=== PATIENT | female | born 1950 | race Caucasian/White ===

== ENCOUNTER 2019-11-11 14:47 | Emergency (ER) | payer OTHER ==
[2019-11-11 15:07] VITALS: BP 145/82; PULSE 94; TEMP 98.5; BMI 43.5
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
[2019-11-11] MEDS ORDERED: KETOROLAC TROMETHAMINE 30 MG/1 ML VIAL IM ONE (16:28)
[2019-11-11] MEDS ORDERED: KETOROLAC TROMETHAMINE 30 MG/1 ML VIAL ONE (16:30)
== END 2019-11-11 16:42 | disposition home or self-care (01) ==
LOC: SUPCPDRO 14:47 → JERFT 14:47
PROC: 3E0233Z Introduction of Anti-inflammatory into Muscle, Percutaneous Approach (ICD-10-PCS; principal; 2019-11-11)
DX: S99.822A Other specified injuries of left foot, initial encounter (principal); V03.10XA Pedestrian on foot injured in collision with car, pick-up truck or van in traffic accident, initial encounter; Y92.414 Local residential or business street as the place of occurrence of the external cause; Y93.89 Activity, other specified; Y99.8 Other external cause status; I10 Essential (primary) hypertension; K21.9 Gastro-esophageal reflux disease without esophagitis; J45.909 Unspecified asthma, uncomplicated; D64.9 Anemia, unspecified; Z96.653 Presence of artificial knee joint, bilateral; Z87.440 Personal history of urinary (tract) infections
CPT/HCPCS: 73630-TC-LT; 99281-25

== ENCOUNTER 2024-01-17 11:57 | Inpatient (IN) | payer OTHER ==
[2024-01-17 13:04] LABS: BASO % 0.4 % (0-2.0); EOS % 0.6 % (0-4.5); HEMATOCRIT 38.2 % (32.4-45.2); HEMOGLOBIN 12.6 GM/dL (10.7-15.3); INR 1.14 (0.83-1.09); LYMPH % 11.5 % (8-40); MCH 26.9 pg (25.7-33.7); MCHC 32.9 g/dl (32.0-36.0); MEAN CELL VOLUME 81.9 fl (80-96); MONO % 5.7 % (3.8-10.2); NEUT % 81.8 % (42.8-82.8); PLATELET COUNT 130 10^3/uL (134-434); PROTHROMBIN TIME (PATIENT) 13.2 SEC (9.7-13.0); RBC 4.66 M/mm3 (3.60-5.2); RDW 15.1 % (11.6-15.6); WHITE BLOOD COUNT 9.2 K/mm3 (4.0-10.0)
[2024-01-17 13:06] LABS: ACTIVATED PTT 31.2 SECONDS (25.2-36.5)
[2024-01-17 13:21] LABS: CHLORIDE 107 mmol/L (98-107); POTASSIUM 4.3 mmol/L (3.5-5.1); SODIUM 139 mmol/L (136-145)
[2024-01-17 13:24] LABS: ALBUMIN 3.2 g/dl (3.4-5.0); ANION GAP 3 mmol/L (4-13); CALCIUM 9.6 mg/dL (8.5-10.1); CO2 29 mmol/L (21-32)
[2024-01-17 13:26] LABS: BLOOD UREA NITROGEN 14.7 mg/dL (7-18); GLUCOSE,RANDOM 100 mg/dL (74-106)
[2024-01-17 13:28] LABS: CREATININE 1.2 mg/dL (0.55-1.3); SGOT/AST 14 U/L (15-37); SGPT/ALT 11 U/L (13-61)
[2024-01-17 13:29] LABS: CHOLESTEROL 170 mg/dL (50-200); TOT PROT 6.4 g/dl (6.4-8.2)
[2024-01-17 13:30] LABS: LDL CHOLESTEROL (ONLY SJRH) 87 mg/dL (5-100)
[2024-01-17 13:31] LABS: BILIRUBIN,TOTAL 0.7 mg/dL (0.2-1)
[2024-01-17 13:32] LABS: ALK PHOS 108 U/L (45-117); HDL CHOLESTEROL 75 mg/dL (40-60)
[2024-01-17] MEDS: SODIUM CHLORIDE 1,000 ML IV SCH (13:50)
[2024-01-17] MEDS ORDERED: ASPIRIN 81 MG CHEWABLE TABLETS ONE (13:57)
[2024-01-17] MEDS: ASPIRIN 81 MG CHEWABLE TABLETS PO ONE (14:13)
[2024-01-17 23:54] VITALS: BMI 34.6
[2024-01-18] MEDS: ACETAMINOPHEN 1000 MG/100 ML BAG IVPB PRN (06:41)
[2024-01-18 07:09] LABS: BASO % 0.4 % (0-2.0); EOS % 0.6 % (0-4.5); HEMATOCRIT 35.3 % (32.4-45.2); HEMOGLOBIN 11.4 GM/dL (10.7-15.3); LYMPH % 12.5 % (8-40); MCH 26.5 pg (25.7-33.7); MCHC 32.2 g/dl (32.0-36.0); MEAN CELL VOLUME 82.5 fl (80-96); MEAN PLT VOLUME 9.9 fl (7.5-11.1); MONO % 8.5 % (3.8-10.2); PLATELET COUNT 115 10^3/uL (134-434); RBC 4.28 M/mm3 (3.60-5.2); RDW 14.7 % (11.6-15.6); WHITE BLOOD COUNT 9.3 K/mm3 (4.0-10.0)
[2024-01-18 07:32] LABS: POTASSIUM 4.2 mmol/L (3.5-5.1)
[2024-01-18 07:37] LABS: CALCIUM 9.6 mg/dL (8.5-10.1)
[2024-01-18 07:38] LABS: MAGNESIUM 1.9 mg/dL (1.8-2.4)
[2024-01-18 07:41] LABS: PHOSPHOROUS 2.6 mg/dL (2.5-4.9)
[2024-01-18] MEDS ORDERED: ALBUTEROL SO4 HFA INHALER IH PRN (07:57)
[2024-01-18] MEDS: BUSPIRONE HCL 10 MG, BUSPIRONE HCL 5 MG PO SCH (10:13)
[2024-01-18] MEDS: PANTOPRAZOLE 40 MG TABLET PO SCH (10:14)
[2024-01-18] MEDS: DULoxetine HCL 30 MG CAPSULE.DR PO SCH (10:14)
[2024-01-18] MEDS: LOSARTAN POTASSIUM 50 MG TABLET PO SCH (10:15)
[2024-01-18] MEDS: GABAPENTIN 300 MG CAPSULE PO SCH (13:55)
[2024-01-18] MEDS: ASPIRIN COATED 81 MG TABLET.EC PO SCH (15:55)
[2024-01-18] MEDS: clonazePAM 0.25 MG ODT TABLETS SL SCH (21:11)
[2024-01-18] MEDS: ATORVASTATIN CA 20 MG TABLET (FP) PO SCH (21:59)
[2024-01-18] MEDS ORDERED: ATORVASTATIN CA 80 MG TABLET (FP) PO SCH (22:00)
[2024-01-19 08:42] LABS: BASO % 0.3 % (0-2.0); EOS % 0.9 % (0-4.5); HEMATOCRIT 34.8 % (32.4-45.2); HEMOGLOBIN 11.6 GM/dL (10.7-15.3); LYMPH % 16.9 % (8-40); MCH 27.4 pg (25.7-33.7); MCHC 33.3 g/dl (32.0-36.0); MEAN CELL VOLUME 82.2 fl (80-96); MEAN PLT VOLUME 9.7 fl (7.5-11.1); MONO % 10.8 % (3.8-10.2); NEUT % 71.1 % (42.8-82.8); PLATELET COUNT 113 10^3/uL (134-434); RBC 4.23 M/mm3 (3.60-5.2); WHITE BLOOD COUNT 8.6 K/mm3 (4.0-10.0)
[2024-01-19 08:51] LABS: POTASSIUM 3.9 mmol/L (3.5-5.1)
[2024-01-19 09:00] LABS: CALCIUM 9.6 mg/dL (8.5-10.1)
[2024-01-19 09:01] LABS: ALBUMIN 3.1 g/dl (3.4-5.0); BLOOD UREA NITROGEN 18.8 mg/dL (7-18)
[2024-01-19 09:04] LABS: CREATININE 1.1 mg/dL (0.55-1.3)
[2024-01-19 09:06] LABS: TOT PROT 5.9 g/dl (6.4-8.2)
[2024-01-19 09:08] LABS: BILIRUBIN,TOTAL 1.1 mg/dL (0.2-1)
[2024-01-20] MEDS: LOSARTAN POTASSIUM 50 MG TABLET PO SCH (09:24)
[2024-01-22] MEDS: DOCUSATE SODIUM 100 MG CAPSULE (FP) PO PRN (22:14)
[2024-01-26] MEDS ORDERED: DOCUSATE SODIUM 100 MG CAPSULE (FP) PO PRN (10:30)
[2024-01-26] MEDS ORDERED: ALBUTEROL SO4 HFA INHALER IH PRN (10:30)
[2024-01-26] MEDS: DULoxetine HCL 30 MG CAPSULE.DR PO SCH (11:25)
[2024-01-26] MEDS: BUSPIRONE HCL 10 MG, BUSPIRONE HCL 5 MG PO SCH (11:26)
[2024-01-26] MEDS: ASPIRIN COATED 81 MG TABLET.EC PO SCH (11:26)
[2024-01-26] MEDS: LOSARTAN POTASSIUM 50 MG TABLET PO SCH (11:27)
[2024-01-26] MEDS: PANTOPRAZOLE 40 MG TABLET PO SCH (11:27)
[2024-01-26] MEDS: GABAPENTIN 300 MG CAPSULE PO SCH (14:12)
[2024-01-26] MEDS ORDERED: BUSPIRONE HCL 10 MG, BUSPIRONE HCL 5 MG PO SCH ×2 (22:00)
[2024-01-26] MEDS: ATORVASTATIN CA 20 MG TABLET (FP) PO SCH (22:43)
[2024-01-27] MEDS ORDERED: DULoxetine HCL 30 MG CAPSULE.DR PO SCH (10:00)
[2024-01-27] MEDS ORDERED: ASPIRIN COATED 81 MG TABLET.EC PO SCH (10:00)
[2024-01-27] MEDS ORDERED: LOSARTAN POTASSIUM 50 MG TABLET PO SCH (10:00)
[2024-01-27] MEDS ORDERED: PANTOPRAZOLE 40 MG TABLET PO SCH (10:00)
[2024-01-29 18:06] VITALS: RESP 18
[2024-01-30] MEDS: MINERAL OIL/PET HY-PHL TOPICAL OINTMENT 454 GM JAR TP SCH (12:20)
[2024-01-31 07:21] VITALS: TEMP 98.2
[2024-01-31 09:43] LABS: BASO % 0.3 % (0-2.0); EOS % 2.1 % (0-4.5); HEMATOCRIT 32.3 % (32.4-45.2); HEMOGLOBIN 10.1 GM/dL (10.7-15.3); LYMPH % 19.2 % (8-40); MCH 26.5 pg (25.7-33.7); MCHC 31.3 g/dl (32.0-36.0); MEAN CELL VOLUME 84.9 fl (80-96); MEAN PLT VOLUME 9.4 fl (7.5-11.1); MONO % 7.6 % (3.8-10.2); NEUT % 70.8 % (42.8-82.8); PLATELET COUNT 172 10^3/uL (134-434); RDW 15.1 % (11.6-15.6); WHITE BLOOD COUNT 7.6 K/mm3 (4.0-10.0)
[2024-01-31 09:56] LABS: POTASSIUM 4.8 mmol/L (3.5-5.1)
[2024-01-31 09:58] LABS: ALBUMIN 2.8 g/dl (3.4-5.0); BLOOD UREA NITROGEN 34.7 mg/dL (7-18); CALCIUM 9.7 mg/dL (8.5-10.1)
[2024-01-31 10:01] LABS: CREATININE 1.4 mg/dL (0.55-1.3)
[2024-01-31 10:03] LABS: BILIRUBIN,TOTAL 0.6 mg/dL (0.2-1); TOT PROT 5.8 g/dl (6.4-8.2)
[2024-01-31 14:39] VITALS: BP 103/53; PULSE 68
== END 2024-01-31 19:12 | DRG 65 ==
LOC: JER 11:57 → JERBED 15:36 → J4W 22:43 → J7W 01-25 16:47
PROVIDERS: ADMIT Internal Medicine; ATTEND Internal Medicine
DX: I63.89 Other cerebral infarction (principal); I24.89 Other forms of acute ischemic heart disease; I69.354 Hemiplegia and hemiparesis following cerebral infarction affecting left non-dominant side; I10 Essential (primary) hypertension; K21.9 Gastro-esophageal reflux disease without esophagitis; D64.9 Anemia, unspecified; J45.909 Unspecified asthma, uncomplicated; R47.1 Dysarthria and anarthria; M25.571 Pain in right ankle and joints of right foot; G62.9 Polyneuropathy, unspecified; L97.529 Non-pressure chronic ulcer of other part of left foot with unspecified severity; F41.8 Other specified anxiety disorders; E78.5 Hyperlipidemia, unspecified; B02.9 Zoster without complications
CPT/HCPCS: 36415; 70450-TC; 70496-TC; 70498-TC; 70551-TC; 71045-TC-FY; 72125-TC; 72170-TC-FY; 73610-TC-RT-FY; 73630-TC-RT-FY; 80048; 80053; 80061; 82550; 82962; 83036; 83735; 84100; 84484; 85025; 85610; 85730; 86850; 86900; 86901; 87635; 93005; 93010; 93306-TC; 97116-GP; 97162-GP; 99285-25; J0131; Q9967

== ENCOUNTER 2025-01-31 16:57 | Observation (INO) | payer OTHER ==
[2025-01-31] MEDS ORDERED: ACETAMINOPHEN INJECTION 100 ML ONE (17:32)
[2025-01-31 18:12] VITALS: BMI 34.7
[2025-01-31] MEDS: ACETAMINOPHEN 1000 MG/100 ML BAG IVPB ONE (18:30)
[2025-01-31 18:50] LABS: ABSOLUTE IMMATURE GRANULOCYTES 0.05 x10^3/uL (0.0-0.031); BASOPHILS # 0.03 x10^3/uL (0.01-0.08); EOSINOPHIL % 0.9 % (0.7-5.8); EOSINOPHILS # 0.09 x10^3/uL (0.04-0.36); HEMATOCRIT 41.7 % (34.1-44.9); MCHC 31.2 g/dl (32.2-35.5); MEAN CELL VOLUME 91.9 fl (79.4-94.8); MONOCYTE # 0.78 x10^3/uL (0.24-0.86); MONOCYTE % 7.7 % (4.7-12.5); PLATELET COUNT 119 x10^3/uL (182-369); RDW 13.3 % (12.4-16.6)
[2025-01-31 18:59] LABS: INR 1.17 (0.83-1.09); PROTHROMBIN TIME (PATIENT) 12.7 SEC (9.7-13.0)
[2025-01-31 19:02] LABS: ACTIVATED PTT 37.1 SECONDS (25.2-36.5)
[2025-01-31 19:30] LABS: POTASSIUM 4.3 mmol/L (3.5-5.1)
[2025-01-31 19:32] LABS: CALCIUM 10.4 mg/dL (8.5-10.1)
[2025-01-31 19:33] LABS: ALBUMIN 3.8 g/dl (3.4-5.0)
[2025-01-31 19:33] LABS: CALCIUM 9.9 mg/dL (8.5-10.1)
[2025-01-31 19:34] LABS: ALBUMIN 3.5 g/dl (3.4-5.0); BLOOD UREA NITROGEN 19.1 mg/dL (7-18)
[2025-01-31 19:36] LABS: CREATININE 1.5 mg/dL (0.55-1.3)
[2025-01-31 19:37] LABS: CREATININE 1.4 mg/dL (0.55-1.3)
[2025-01-31 19:37] LABS: BILIRUBIN,TOTAL 0.5 mg/dL (0.2-1); TOT PROT 6.8 g/dl (6.4-8.2)
[2025-01-31 19:39] LABS: BILIRUBIN,TOTAL 0.7 mg/dL (0.2-1); TOT PROT 6.5 g/dl (6.4-8.2)
[2025-01-31] MEDS ORDERED: MORPHINE SULFATE 2 MG/ML SYRINGE ONE ×2 (19:48→19:51)
[2025-01-31] MEDS: morphine SULFATE 4 MG/ML VIAL IVPUSH ONE (20:01)
[2025-01-31] MEDS ORDERED: ACETAMINOPHEN 1000 MG/100 ML BAG IVPB PRN (21:07)
[2025-01-31] MEDS: SODIUM CHLORIDE 1,000 ML IV SCH (22:12)
[2025-01-31] MEDS: INSULIN ASPART SLIDING SCALE (NOVOLOG) 1 VIAL SQ SCH (22:13)
[2025-01-31] MEDS ORDERED: ALBUTEROL SO4 HFA INHALER IH PRN (23:30)
[2025-02-01] MEDS: LIDOCAINE PATCH REMOVAL MC SCH (00:17)
[2025-02-01] MEDS ORDERED: DOCUSATE SODIUM 100 MG CAPSULE (FP) PO PRN (05:36)
[2025-02-01] MEDS ORDERED: MAGNESIUM HYDROX 2400MG/30ML ORAL SUSPENSION 30 ML CUP PO PRN (05:36)
[2025-02-01] MEDS: GABAPENTIN 400 MG, GABAPENTIN 100 MG PO SCH (05:38)
[2025-02-01] MEDS ORDERED: GABAPENTIN 400 MG CAPSULE PO SCH (06:00)
[2025-02-01] MEDS ORDERED: GABAPENTIN 100 MG CAPSULE PO SCH (06:00)
[2025-02-01 08:09] LABS: ABSOLUTE IMMATURE GRANULOCYTES 0.09 x10^3/uL (0.0-0.031); BASOPHILS # 0.02 x10^3/uL (0.01-0.08); EOSINOPHIL % 1.6 % (0.7-5.8); EOSINOPHILS # 0.11 x10^3/uL (0.04-0.36); HEMATOCRIT 38.8 % (34.1-44.9); HEMOGLOBIN 12.1 g/dL (11.2-15.7); MCHC 31.2 g/dl (32.2-35.5); MEAN CELL VOLUME 91.5 fl (79.4-94.8); MEAN PLT VOLUME 11.9 fl (9.4-12.3); MONOCYTE # 0.52 x10^3/uL (0.24-0.86); MONOCYTE % 7.6 % (4.7-12.5); PLATELET COUNT 90 x10^3/uL (182-369); RDW 13.2 % (12.4-16.6)
[2025-02-01 08:14] LABS: POTASSIUM 4.2 mmol/L (3.5-5.1)
[2025-02-01 08:25] LABS: BLOOD UREA NITROGEN 18.1 mg/dL (7-18); CALCIUM 9.5 mg/dL (8.5-10.1)
[2025-02-01 08:26] LABS: ALBUMIN 3.3 g/dl (3.4-5.0); MAGNESIUM 1.9 mg/dL (1.8-2.4)
[2025-02-01 08:29] LABS: CREATININE 1.2 mg/dL (0.55-1.3)
[2025-02-01 08:30] LABS: BILIRUBIN,TOTAL 0.7 mg/dL (0.2-1)
[2025-02-01] MEDS: SODIUM CHLORIDE 1,000 ML IV SCH (08:40)
[2025-02-01] MEDS ORDERED: LIDOCAINE 5% TOPICAL PATCH TP SCH (10:00)
[2025-02-01] MEDS ORDERED: DULoxetine HCL 30 MG CAPSULE.DR PO ONE (10:34)
[2025-02-01] MEDS: LIDOCAINE 5% TOPICAL PATCH TP SCH (10:39)
[2025-02-01] MEDS: amLODIPine BESYLATE 5 MG TABLET (FP) PO SCH (10:40)
[2025-02-01] MEDS: BUSPIRONE HCL 10 MG, BUSPIRONE HCL 5 MG PO SCH (10:40)
[2025-02-01] MEDS: DULoxetine HCL 60 MG CAPSULE.DR PO SCH (10:41)
[2025-02-01] MEDS: FAMOTIDINE 40 MG TABLET PO SCH (12:06)
[2025-02-01 14:54] VITALS: RESP 18
[2025-02-01] MEDS: HYDROmorphone HCL CARPU-JECT 2 MG/1 ML DISP.SYRIN IVPB PRN (15:11)
[2025-02-01] MEDS: ATORVASTATIN CA 80 MG TABLET (FP) PO SCH (21:22)
[2025-02-02 07:24] LABS: ABSOLUTE IMMATURE GRANULOCYTES 0.03 x10^3/uL (0.0-0.031); BASOPHILS # 0.02 x10^3/uL (0.01-0.08); EOSINOPHIL % 1.8 % (0.7-5.8); EOSINOPHILS # 0.13 x10^3/uL (0.04-0.36); HEMATOCRIT 36.8 % (34.1-44.9); HEMOGLOBIN 11.3 g/dL (11.2-15.7); MCHC 30.7 g/dl (32.2-35.5); MEAN CELL VOLUME 91.1 fl (79.4-94.8); MEAN PLT VOLUME 12.3 fl (9.4-12.3); MONOCYTE # 0.62 x10^3/uL (0.24-0.86); MONOCYTE % 8.6 % (4.7-12.5); PLATELET COUNT 99 x10^3/uL (182-369); RDW 13.2 % (12.4-16.6)
[2025-02-02 07:51] LABS: CALCIUM 9.3 mg/dL (8.5-10.1)
[2025-02-02 07:52] LABS: BLOOD UREA NITROGEN 11.8 mg/dL (7-18); MAGNESIUM 1.8 mg/dL (1.8-2.4)
[2025-02-02 07:54] LABS: BILIRUBIN,TOTAL 0.6 mg/dL (0.2-1)
[2025-02-02 07:55] LABS: CREATININE 0.9 mg/dL (0.55-1.3); TOT PROT 5.6 g/dl (6.4-8.2)
[2025-02-02] MEDS: DULoxetine HCL 30 MG CAPSULE.DR PO SCH (09:10)
[2025-02-02 12:21] VITALS: BP 121/90; PULSE 67; TEMP 98.4
== END 2025-02-02 12:55 ==
LOC: JER 16:57 → JERBED 20:21 → J7W 22:55
PROVIDERS: ADMIT Internal Medicine
PROC: 3E033NZ Introduction of Analgesics, Hypnotics, Sedatives into Peripheral Vein, Percutaneous Approach (ICD-10-PCS; principal; 2025-01-31)
PROC: 3E0337Z Introduction of Electrolytic and Water Balance Substance into Peripheral Vein, Percutaneous Approach (ICD-10-PCS; 2025-01-31)
DX: S80.12XA Contusion of left lower leg, initial encounter (principal); W18.39XA Other fall on same level, initial encounter; Y04.2XXA Assault by strike against or bumped into by another person, initial encounter; Y92.091 Bathroom in other non-institutional residence as the place of occurrence of the external cause; M79.89 Other specified soft tissue disorders; E11.9 Type 2 diabetes mellitus without complications; I10 Essential (primary) hypertension; F32.A Depression, unspecified; E78.5 Hyperlipidemia, unspecified; Z86.73 Personal history of transient ischemic attack (TIA), and cerebral infarction without residual deficits; J44.9 Chronic obstructive pulmonary disease, unspecified; K21.9 Gastro-esophageal reflux disease without esophagitis
CPT/HCPCS: 36415; 70450-TC; 72125-TC; 72128-TC; 73590-TC-LT-FY; 80053; 82962; 83036; 83735; 84100; 85025; 85610; 85730; 86850; 86900; 86901; 93005; 93010; 96361; 96374; 96375; 99285-25; G0378; J0131

== ENCOUNTER 2025-02-04 22:21 | Observation (INO) | payer OTHER ==
[2025-02-05 01:06] LABS: ABSOLUTE IMMATURE GRANULOCYTES 0.05 x10^3/uL (0.0-0.031); BASOPHILS # 0.02 x10^3/uL (0.01-0.08); EOSINOPHIL % 0.7 % (0.7-5.8); EOSINOPHILS # 0.08 x10^3/uL (0.04-0.36); HEMATOCRIT 40.5 % (34.1-44.9); HEMOGLOBIN 12.9 g/dL (11.2-15.7); MCHC 31.9 g/dl (32.2-35.5); MEAN CELL VOLUME 88.8 fl (79.4-94.8); MEAN PLT VOLUME 11.6 fl (9.4-12.3); MONOCYTE # 1.29 x10^3/uL (0.24-0.86); PLATELET COUNT 188 x10^3/uL (182-369); RDW 13.2 % (12.4-16.6)
[2025-02-05 01:56] LABS: BLOOD UREA NITROGEN 28.6 mg/dL (7-18); CALCIUM 10.6 mg/dL (8.5-10.1)
[2025-02-05 02:00] LABS: CREATININE 1.4 mg/dL (0.55-1.3)
[2025-02-05 02:01] LABS: BILIRUBIN,TOTAL 1.2 mg/dL (0.2-1); TOT PROT 7.3 g/dl (6.4-8.2)
[2025-02-05 02:07] LABS: ALBUMIN 3.9 g/dl (3.4-5.0)
[2025-02-05] MEDS: SODIUM CHLORIDE 0.9% 500 ML INFUS.BAG IV ONE (04:29)
[2025-02-05 05:16] LABS: EPI CELLS 32 /uL (0-25.1); HYALINE CASTS 6 /uL (0-3.1); PH,URINE 5.5 (5.0-8.0); URINE APPEARANCE CLEAR; URINE BACTERIA 9 /uL (0-1359); URINE BILIRUBIN NEGATIVE (NEGATIVE); URINE COLOR YELLOW; URINE GLUCOSE (UA) NEGATIVE (NEGATIVE); URINE KETONE NEGATIVE (NEGATIVE); URINE LEUK ESTERASE NEGATIVE (NEGATIVE); URINE NITRITE NEGATIVE (NEGATIVE); URINE PROTEIN 2+ (NEGATIVE); URINE WBC 41 /uL (0-25.8)
[2025-02-05] MEDS ORDERED: MORPHINE SULFATE 2 MG/ML SYRINGE IVPUSH PRN (05:25)
[2025-02-05] MEDS ORDERED: NITROGLYCERIN SUBLINGUAL 1/150 0.4 MG TAB SL PRN (05:28)
[2025-02-05] MEDS ORDERED: ALBUTEROL SO4 0.083% IH SOL 2.5 MG/3 ML VIAL.NEB. NEB PRN (05:31)
[2025-02-05 06:47] LABS: N-TERMINAL BNP 532.3 pg/ml (5-450)
[2025-02-05] MEDS ORDERED: INSULIN ASPART SLIDING SCALE (NOVOLOG) 1 VIAL SQ SCH (07:00)
[2025-02-05] MEDS ORDERED: DOCUSATE SODIUM 100 MG CAPSULE (FP) PO PRN (07:28)
[2025-02-05 07:50] LABS: URINE CRYSTALS PRESENT /hpf; URINE RBC 267.4 /uL (0-23.9)
[2025-02-05] MEDS: ENOXAPARIN NA (PORCINE) 40 MG/0.4 ML DISP.SYRIN SQ SCH (10:17)
[2025-02-05] MEDS: FAMOTIDINE 20 MG TABLET PO SCH (10:17)
[2025-02-05] MEDS: amLODIPine BESYLATE 5 MG TABLET (FP) PO SCH (10:17)
[2025-02-05] MEDS: FUROSEMIDE 40 MG/4 ML INJECTABLE VIAL IVPUSH SCH (10:18)
[2025-02-05] MEDS: ASPIRIN COATED 81 MG TABLET.EC PO SCH (10:18)
[2025-02-05] MEDS: DULoxetine HCL 30 MG CAPSULE.DR PO SCH (10:18)
[2025-02-05] MEDS: busPIRone HCL 5 MG TABLET PO SCH (10:18)
[2025-02-05] MEDS: LIDOCAINE 5% TOPICAL PATCH TP SCH (12:06)
[2025-02-05 12:51] VITALS: BMI 32.8
[2025-02-05 12:53] VITALS: RESP 14; TEMP 97.9
[2025-02-05] MEDS: GABAPENTIN 400 MG CAPSULE PO SCH (13:00)
[2025-02-05 16:01] VITALS: BP 122/73; PULSE 85
[2025-02-05] MEDS: ACETAMINOPHEN 325 MG TABLET (FP) PO PRN (16:39)
[2025-02-05] MEDS ORDERED: LIDOCAINE PATCH REMOVAL MC SCH (22:00)
[2025-02-05] MEDS ORDERED: ATORVASTATIN CA 40 MG TABLET (FP) PO SCH (22:00)
== END 2025-02-05 17:02 ==
LOC: JER 22:21 → JERBED 02-05 04:55 → J7W 02-05 08:31
PROVIDERS: ADMIT Hospitalist; ATTEND Nurse Practitioner Acute Care
PROC: 3E023GC Introduction of Other Therapeutic Substance into Muscle, Percutaneous Approach (ICD-10-PCS; principal; 2025-02-05)
PROC: 3E033GC Introduction of Other Therapeutic Substance into Peripheral Vein, Percutaneous Approach (ICD-10-PCS; 2025-02-05)
PROC: 3E0337Z Introduction of Electrolytic and Water Balance Substance into Peripheral Vein, Percutaneous Approach (ICD-10-PCS; 2025-02-05)
DX: I12.9 Hypertensive chronic kidney disease with stage 1 through stage 4 chronic kidney disease, or unspecified chronic kidney disease (principal); N18.9 Chronic kidney disease, unspecified; E11.9 Type 2 diabetes mellitus without complications; F32.A Depression, unspecified; E78.5 Hyperlipidemia, unspecified; R07.9 Chest pain, unspecified; K21.9 Gastro-esophageal reflux disease without esophagitis; Z87.891 Personal history of nicotine dependence; Z86.73 Personal history of transient ischemic attack (TIA), and cerebral infarction without residual deficits
CPT/HCPCS: 36415; 71045-TC-FY; 71275-TC; 80053; 81003; 82962; 83880; 84484; 85025; 87086; 87635; 93005; 93010; 93306-TC; 96365; 96367; 96375; 96376; 97116-GP; 97161-GP; 99285-25; G0378; Q9967

== ENCOUNTER 2025-04-18 11:15 | Inpatient (IN) | payer OTHER ==
[2025-04-18 12:08] VITALS: BMI 33.9
[2025-04-18] MEDS ORDERED: ACETAMINOPHEN INJECTION 100 ML ONE (14:00)
[2025-04-18] MEDS: ACETAMINOPHEN 1000 MG/100 ML BAG IVPB ONE (14:26)
[2025-04-18 14:38] LABS: RDW 13.2 % (12.4-16.6)
[2025-04-18 14:40] LABS: ABSOLUTE IMMATURE GRANULOCYTES 0.01 x10^3/uL (0.0-0.031); BASOPHILS # 0.04 x10^3/uL (0.01-0.08); EOSINOPHIL % 2.6 % (0.7-5.8); EOSINOPHILS # 0.18 x10^3/uL (0.04-0.36); HEMATOCRIT 39.5 % (34.1-44.9); HEMOGLOBIN 12.1 g/dL (11.2-15.7); MCHC 30.6 g/dl (32.2-35.5); MEAN PLT VOLUME 12.1 fl (9.4-12.3); MONOCYTE # 0.56 x10^3/uL (0.24-0.86); MONOCYTE % 8.1 % (4.7-12.5); PLATELET COUNT 127 x10^3/uL (182-369)
[2025-04-18] MEDS ORDERED: ONDANSETRON 4 MG/2 ML VIAL ONE (14:40)
[2025-04-18] MEDS: SODIUM CHLORIDE 0.9% 500 ML INFUS.BAG IV ONE (14:48)
[2025-04-18] MEDS: ONDANSETRON 4 MG/2 ML VIAL IVPUSH ONE (14:48)
[2025-04-18 14:59] LABS: POTASSIUM 3.8 mmol/L (3.5-5.1)
[2025-04-18 15:01] LABS: ALBUMIN 3.2 g/dl (3.4-5.0); BLOOD UREA NITROGEN 14.3 mg/dL (7-18); CALCIUM 9.9 mg/dL (8.5-10.1); MAGNESIUM 1.8 mg/dL (1.8-2.4)
[2025-04-18 15:05] LABS: CREATININE 1.2 mg/dL (0.55-1.3)
[2025-04-18 15:06] LABS: BILIRUBIN,TOTAL 0.6 mg/dL (0.2-1); TOT PROT 5.9 g/dl (6.4-8.2)
[2025-04-18 17:43] LABS: URINE APPEARANCE CLEAR; URINE BILIRUBIN NEGATIVE (NEGATIVE); URINE COLOR YELLOW; URINE GLUCOSE (UA) NEGATIVE (NEGATIVE); URINE KETONE TRACE (NEGATIVE); URINE LEUK ESTERASE NEGATIVE (NEGATIVE); URINE NITRITE NEGATIVE (NEGATIVE); URINE PROTEIN TRACE (NEGATIVE); URINE UROBILINOGEN 0.2 mg/dL (0.2-1.0)
[2025-04-18] MEDS ORDERED: ENOXAPARIN NA (PORCINE) 40 MG/0.4 ML DISP.SYRIN SQ ONE (20:23)
[2025-04-18] MEDS: ENOXAPARIN NA (PORCINE) 40 MG/0.4 ML DISP.SYRIN SQ SCH ×2 (20:30→21:18)
[2025-04-18] MEDS ORDERED: ALBUTEROL SO4 0.083% IH SOL 2.5 MG/3 ML VIAL.NEB. NEB PRN (21:05)
[2025-04-18] MEDS ORDERED: DOCUSATE SODIUM 100 MG CAPSULE (FP) PO PRN (21:05)
[2025-04-18] MEDS: busPIRone HCL 5 MG TABLET PO SCH (22:13)
[2025-04-18] MEDS: ATORVASTATIN CA 40 MG TABLET (FP) PO SCH (22:13)
[2025-04-18] MEDS: GABAPENTIN 400 MG CAPSULE PO SCH (22:13)
[2025-04-19 08:51] LABS: ABSOLUTE IMMATURE GRANULOCYTES 0.01 x10^3/uL (0.0-0.031); BASOPHILS # 0.02 x10^3/uL (0.01-0.08); EOSINOPHIL % 3.5 % (0.7-5.8); EOSINOPHILS # 0.19 x10^3/uL (0.04-0.36); HEMATOCRIT 38.8 % (34.1-44.9); HEMOGLOBIN 11.9 g/dL (11.2-15.7); MCHC 30.7 g/dl (32.2-35.5); MEAN CELL VOLUME 89.6 fl (79.4-94.8); MEAN PLT VOLUME 12.2 fl (9.4-12.3); MONOCYTE # 0.47 x10^3/uL (0.24-0.86); MONOCYTE % 8.7 % (4.7-12.5); PLATELET COUNT 132 x10^3/uL (182-369); RDW 13.2 % (12.4-16.6)
[2025-04-19 09:12] LABS: ALBUMIN 3.1 g/dl (3.4-5.0)
[2025-04-19 09:13] LABS: BLOOD UREA NITROGEN 16.3 mg/dL (7-18); MAGNESIUM 1.9 mg/dL (1.8-2.4)
[2025-04-19 09:16] LABS: CREATININE 1.2 mg/dL (0.55-1.3)
[2025-04-19 09:17] LABS: BILIRUBIN,TOTAL 0.6 mg/dL (0.2-1); TOT PROT 5.8 g/dl (6.4-8.2)
[2025-04-19] MEDS: FAMOTIDINE 20 MG TABLET PO SCH (10:10)
[2025-04-19] MEDS: ASPIRIN COATED 81 MG TABLET.EC PO SCH (10:10)
[2025-04-19] MEDS: DULoxetine HCL 30 MG CAPSULE.DR PO SCH (10:10)
[2025-04-22 15:23] VITALS: BP 105/50; PULSE 69; RESP 16; TEMP 98.2
== END 2025-04-22 18:26 | DRG 552 ==
LOC: JER 11:15 → JERBED 18:40 → J5S 23:27
PROVIDERS: ADMIT Hospitalist; ATTEND Family Medicine
DX: M54.2 Cervicalgia (principal); I69.354 Hemiplegia and hemiparesis following cerebral infarction affecting left non-dominant side; I12.9 Hypertensive chronic kidney disease with stage 1 through stage 4 chronic kidney disease, or unspecified chronic kidney disease; J44.9 Chronic obstructive pulmonary disease, unspecified; E78.5 Hyperlipidemia, unspecified; K21.9 Gastro-esophageal reflux disease without esophagitis; R20.2 Paresthesia of skin; N18.32 Chronic kidney disease, stage 3b
CPT/HCPCS: 36415; 70450-TC; 71045-TC-FY; 72125-TC; 80053; 81003; 82962; 83735; 84443; 84484; 85025; 87086; 93005; 93010; 97116-GP; 97161-GP; 99285-25